=== PATIENT | male | born 1960 | race Caucasian/White ===

== ENCOUNTER 2016-12-04 13:33 | Inpatient (IN) | payer OTHER ==
--- NOTE | 2016-12-04 18:46 | NUR ---
1830 pt. transferred to icu per bed, skin w/d , says feeling better, no c/o o2 at 2 liters per n/c, iv patent infusing ns at 200 ml\hr
--- NOTE | 2016-12-06 14:11 | NUR ---
1200-MD HAS BEEN TO SEE AND ASSESS PT AT THIS TIME. UPDATED ON CONDITION AND ABNORMAL LAB VALUES. SEE N/O'S
--- NOTE | 2016-12-06 23:47 | NUR ---
PT ARRIVED VIA WC FROM THE UNIT. PT FAMILY AT BEDSIDE. ORIENTED TO ROOM. NAD NOTED
[2016-12-13] MEDS ORDERED: PROZAC40 MG PO (14:20)
[2016-12-13] MEDS ORDERED: FARXIGA10 MG PO (14:21)
[2016-12-13] MEDS ORDERED: LEVEMIR FL100 UNIT/1 SQ (14:21)
[2016-12-13] MEDS ORDERED: CYCLOBENZAPRINE10 MG PO (14:22)
[2016-12-13] MEDS ORDERED: OMEPRAZOLE20 MG PO (14:22)
[2016-12-13] MEDS ORDERED: SYNTHROID300 MCG PO (14:22)
[2016-12-13] MEDS ORDERED: DEPAKOTE ER500 MG PO (14:23)
[2016-12-13] MEDS ORDERED: CYTOTEC200 MCG PO (14:23)
[2016-12-13] MEDS ORDERED: BACTROBAN15 GM TOP (14:24)
[2016-12-13] MEDS ORDERED: NEURONTIN800 MG PO (14:24)
[2016-12-13] MEDS ORDERED: NORCO 10-325 T1 EACH PO (14:24)
[2016-12-13] MEDS ORDERED: ACETAMINOPHEN325 MG PO (14:25)
[2016-12-13] MEDS ORDERED: NICOTINE PATCH1 EAC4 TOP (14:25)
[2016-12-13] MEDS ORDERED: COMBIVENT RESPIM4 GM IH (14:25)
[2016-12-13] MEDS ORDERED: FLOMAX0.4 MG PO (14:26)
[2016-12-13] MEDS ORDERED: PROSCAR5 MG PO (14:26)
== END 2016-12-13 15:45 | disposition home or self-care (01) | DRG 871 ==
LOC: ER 13:33 → MED 16:24 → ICU 18:33 → MED 12-06 20:10
PROVIDERS: ADMIT Internal Medicine
PROC: 3E0234Z Introduction of Serum, Toxoid and Vaccine into Muscle, Percutaneous Approach (ICD-10-PCS; principal; 2016-12-13)
DX: A41.9 Sepsis, unspecified organism (principal); J13 Pneumonia due to Streptococcus pneumoniae; J44.0 Chronic obstructive pulmonary disease with (acute) lower respiratory infection; E87.1 Hypo-osmolality and hyponatremia; E46 Unspecified protein-calorie malnutrition; G47.33 Obstructive sleep apnea (adult) (pediatric); F31.9 Bipolar disorder, unspecified; N40.1 Benign prostatic hyperplasia with lower urinary tract symptoms; R33.8 Other retention of urine; R65.20 Severe sepsis without septic shock; R09.02 Hypoxemia; E78.5 Hyperlipidemia, unspecified; E03.9 Hypothyroidism, unspecified; E11.40 Type 2 diabetes mellitus with diabetic neuropathy, unspecified; K21.9 Gastro-esophageal reflux disease without esophagitis; F17.210 Nicotine dependence, cigarettes, uncomplicated; Z82.3 Family history of stroke; Z80.8 Family history of malignant neoplasm of other organs or systems; Z79.84 Long term (current) use of oral hypoglycemic drugs; Z79.4 Long term (current) use of insulin; Z79.891 Long term (current) use of opiate analgesic; Z79.899 Other long term (current) drug therapy; E87.6 Hypokalemia; Z68.28 Body mass index [BMI] 28.0-28.9, adult; B18.2 Chronic viral hepatitis C; E87.70 Fluid overload, unspecified; D64.9 Anemia, unspecified; Z23 Encounter for immunization
CPT/HCPCS: 36415; 87150; 87502; 94664; 97161-GP; G0009; J0696; J1650; J1885; J1940; J3370; J7040; J7050

== ENCOUNTER 2016-12-04 13:33 | Emergency (ER) | payer OTHER | END 2016-12-04 16:23 | disposition critical access hospital (66) | LOC: ER 13:33 | DX: J44.0 Chronic obstructive pulmonary disease with (acute) lower respiratory infection (principal); J18.1 Lobar pneumonia, unspecified organism; E11.65 Type 2 diabetes mellitus with hyperglycemia; R07.89 Other chest pain; D72.829 Elevated white blood cell count, unspecified; R00.0 Tachycardia, unspecified; R65.10 Systemic inflammatory response syndrome (SIRS) of non-infectious origin without acute organ dysfunction; I10 Essential (primary) hypertension; E03.9 Hypothyroidism, unspecified; F31.9 Bipolar disorder, unspecified; F32.9 Major depressive disorder, single episode, unspecified; K21.9 Gastro-esophageal reflux disease without esophagitis; G62.9 Polyneuropathy, unspecified; Z79.899 Other long term (current) drug therapy; Z79.4 Long term (current) use of insulin; Z79.84 Long term (current) use of oral hypoglycemic drugs | CPT/HCPCS: 36415; 87502; 96361; 96365; 96375; J1885 ==